=== PATIENT | female | born 1950 | race Caucasian/White ===

== ENCOUNTER 2022-01-16 09:26 | Emergency (ER) | payer MEDICARE ==
[2022-01-16 09:46] VITALS: BP 128/84; PULSE 89; RESP 20; TEMP 98.2
[2022-01-16] MEDS ORDERED: MECLIZINE 12.5 MG TAB PO STA (09:57)
[2022-01-16 10:30] LABS: Basophils % (A) 0 %; Eosinophils # (A) 0.1 k/uL (0-0.7); Eosinophils % (A) 1 %; HCT 43.4 % (34.0-46.0); HGB 14.7 gm/dL (11.4-16.0); Lymphocytes # (A) 1.5 k/uL (1.0-4.8); Lymphocytes % (A) 15 %; MCH 31.2 pg (25.0-35.0); MCHC 33.7 g/dL (31.0-37.0); MCV 92.4 fL (80.0-100.0); Mean Platelet Volume 8.5; Monocytes # (A) 0.5 k/uL (0-1.0); Monocytes % (A) 5 %; Neutrophils # (A) 7.5 k/uL (1.3-7.7); Neutrophils % (A) 77 %; Platelet Count 285 k/uL (150-450); RDW 13.3 % (11.5-15.5); WBC 9.8 k/uL (3.8-10.6)
[2022-01-16 10:33] LABS: Appearance,Urine Clear (Clear); Bilirubin,Urine Negative (Negative); Blood,Urine Negative (Negative); Color,Urine Yellow; Glucose,Urine (UA) Negative (Negative); Ketones,Urine Negative (Negative); Leukocyte Esterase,Urine Negative (Negative); Nitrite,Urine Negative (Negative); PH, Urine 7.5 (5.0-8.0); Protein,Urine Negative (Negative); Specific Gravity,Urine 1.017 (1.001-1.035); Urobilinogen,Urine <2.0 mg/dL (<2.0)
--- NOTE | 2022-01-16 10:34 | XR ---
EXAMINATION TYPE: XR chest 2V DATE OF EXAM: 01/16/2022 COMPARISON: NONE TECHNIQUE: PA and lateral views submitted. HISTORY: Dizziness FINDINGS: The lungs are clear and there is no pneumothorax, pleural effusion, or focal pneumonia. Prominence of the right paratracheal suprahilar stripe stable from 2015 and may represent prominent ascending ao rta. Heart size normal. No overt failure. Partial eventration right hemidiaphragm. This should joint arthropathy noted. IMPRESSION: 1. No acute process. Persistent prominence of the right paratracheal stripe could represent an aortic aneurysm or ectasia. Adenopathy not excluded. Findings are stable from prior chest x-ray 2015.
[2022-01-16 10:54] LABS: ALT 16 U/L (4-34); AST 19 U/L (14-36); African American GFR (CKD) >90 (>60 ml/min/1.73 sqM); Albumin 4.8 g/dL (3.5-5.0); Alkaline Phosphatase 65 U/L (38-126); Anion Gap 11 mmol/L; Blood Urea Nitrogen 18 mg/dL (7-17); Calcium 9.6 mg/dL (8.4-10.2); Carbon Dioxide 27 mmol/L (22-30); Chloride 99 mmol/L (98-107); Glucose 107 mg/dL (74-99); Non-African American GFR(CKD) 79 (>60 ml/min/1.73 sqM); Potassium 4.4 mmol/L (3.5-5.1); Sodium 137 mmol/L (137-145); Total Bilirubin 0.6 mg/dL (0.2-1.3); Total Protein 7.3 g/dL (6.3-8.2)
--- NOTE | 2022-01-16 11:02 | ED ---
General Adult HPI - General Chief complaint: Dizziness Stated complaint: dizziness, headache Time Seen by Provider: 01/16/22 09:49 Source: patient, RN notes reviewed, old records reviewed Mode of arrival: ambulatory Limitations: no limitations - History of Present Illness Initial comments: Patient is a 71-year-old female with past medical history remarkable for hypertension, thyroid disorder who presents emergency Department complaining of a dizziness sensation. States she awoke earlier this morning with a dizziness that she describes as somewhat of a lightheaded sensation as well as somewhat of a room spinning sensation that was followed by a frontal headache. Headache was not the worst headache of her life. It is mild. Still somewhat present. The dizziness sensation is still somewhat present as well. Does have a remote history of vertigo but states it has been multiple years. States this is somewhat different than what she remembers. Denies any other acute complaints at this time including chest pain, shortness of breath, abdominal pain, nausea, vomiting. Denies any blurry vision. Denies any trauma. Is not on blood thinners. Denies any upper respiratory illnesses that are recent. Denies any ear fullness or runny nose. Has no other acute complaints. Presents for further evaluation at this time. - Related Data Home Medications Medication Instructions Recorded Confirmed Lisinopril-Hctz 20-12.5 mg 1 tab PO DAILY 05/02/14 01/16/22 [Zestoretic 20-12.5] Famotidine [Pepcid] 40 mg PO DAILY 01/16/22 01/16/22 Levothyroxine Sodium [Synthroid] 150 mcg PO DAILY 01/16/22 01/16/22 Previous Rx's Medication Instructions Recorded Meclizine [Antivert] 25 mg PO TID PRN 7 Days #21 tab 01/16/22 Allergies Allergy/AdvReac Type Severity Reaction Status Date / Time Penicillins Allergy Unknown Verified 01/16/22 12:14 propoxyphene HCl Allergy Unknown Verified 01/16/22 12:14 [From Darvon] sulfamethoxazole Allergy Unknown Verified 01/16/22 12:14 [From Bactrim] trimethoprim [From Bactrim] Allergy Unknown Verified 01/16/22 12:14 Review of Systems ROS Statement: Those systems with pertinent positive or pertinent negative responses have been documented in the HPI. Review of Systems: CONST: Denies fever EYES: Denies blurry vision ENT: Denies nasal congestion C/V: Denies Chest pain RESP: Denies shortness of breath GI: Denies abdominal pain : Denies dysuria SKIN: Denies rash. MSK: Denies joint pain. NEURO: Endorses mild frontal headache that is resolving ROS Other: All systems not noted in ROS Statement are negative. Past Medical History Past Medical History: Hypertension, Thyroid Disorder History of Any Multi-Drug Resistant Organisms: None Reported Past Surgical History: Bariatric Surgery, Tonsillectomy, Tubal Ligation Additional Past Surgical History / Comment(s): lap band Past Psychological History: No Psychological Hx Reported Smoking Status: Former smoker Past Alcohol Use History: None Reported Past Drug Use History: None Reported General Exam - General Exam Comments Initial Comments: General: Appears in no acute distress. HEAD: Normal with no signs of head trauma. EYES: PERRLA, EOMI, conjunctiva normal, no discharge. Pupils 2 mm and equal bilaterally. ENT: Hearing grossly intact, normal oropharynx. RESPIRATORY: Clear breath sounds bilaterally. No wheezes, rales, or rhonchi. C/V: Regular rate and rhythm. S1 and S2 auscultated, no edema, peripheral pulses 2+ and intact throughout ABD: Abd is soft, nontender, nondistended EXT: Normal range of motion, no obvious deformity SKIN: No rashes or lesions observed on exposed skin. NEURO: Alert and oriented x 4. Cranial nerves II-XII intact. No focal sensory or strength deficits. NIH of 0. GCS of 15. Cerebellar function is within normal limits as evident by normal finger to nose testing, [id number] testing, absence of dysdiadochokinesia. Negative Romberg. She ambulates without difficulty. Limitations: no limitations Course Vital Signs 01/16/22 09:43 Temperature 98.2 F Pulse Rate 89 Respiratory 20 Rate Blood Pressure 128/84 O2 Sat by Pulse 94 L Oximetry Medical Decision Making - Medical Decision Making Based on the patient's presentation and physical exam, I'm concerned for possible vertiginous causes for her dizziness. Cannot rule out central causes, however it does appear to be somewhat positional. No nystagmus appreciated. With the headache and I did recommend we obtain CT imaging which she consented to. We will also obtain basic laboratory studies at this time. She was in agreement with this plan. She is relatively asymptomatic at this time. Vital signs within acceptable limits. EKG showed no signs of acute ischemia. Laboratory studies are within normal limits. Chest x-ray reveals no acute cardio pulmonary process.Patient specifically asked about carbon monoxide poisoning and she does have abdominal tenderness. We will obtain level which was normal. CT brain showed no acute process. CT angiogram of the brain also was unremarka ble. Chronic findings only. On reevaluation come patient remains asymptomatic. I believe it is safer to be discharged home with meclizine prescription. She was in agreement this plan. We'll follow up with her primary care physician. Strict return precautions were discussed. We discussed her results. She was in agreement this plan. I will provide the patient with a prescription for Antivert. I instructed the patient to follow up with their PCP in the next 1-3 days. I explained that the patient should return to the emergency department if they experience any worsening symptoms. Strict return precautions were discussed with the patient. The patient expressed understanding of these instructions. I answered all questions that the patient had. The patient was discharged home in good condition with their prescriptions and follow up information. - Lab Data Result diagrams: 01/16/22 10:06 01/16/22 10:06 Lab Results 01/16/22 01/16/22 01/16/22 Range/Units 10:06 10:06 10:06 WBC 9.8 (3.8-10.6) k/uL RBC 4.70 (3.80-5.40) m/uL Hgb 14.7 (11.4-16.0) gm/dL Hct 43.4 (34.0-46.0) % MCV 92.4 (80.0-100.0) fL MCH 31.2 (25.0-35.0) pg MCHC 33.7 (31.0-37.0) g/dL RDW 13.3 (11.5-15.5) % Plt Count 285 (150-450) k/uL MPV 8.5 Neutrophils % 77 % Lymphocytes % 15 % Monocytes % 5 % Eosinophils % 1 % Basophils % 0 % Neutrophils # 7.5 (1.3-7.7) k/uL Lymphocytes # 1.5 (1.0-4.8) k/uL Monocytes # 0.5 (0-1.0) k/uL Eosinophils # 0.1 (0-0.7) k/uL Basophils # 0.0 (0-0.2) k/uL Carbon Monoxide, Quant (<10.0) % Sodium 137 (137-145) mmol/L Potassium 4.4 (3.5-5.1) mmol/L Chloride 99 (98-107) mmol/L Carbon Dioxide 27 (22-30) mmol/L Anion Gap 11 mmol/L BUN 18 H (7-17) mg/dL Creatinine 0.76 (0.52-1.04) mg/dL Est GFR (CKD-EPI)AfAm >90 (>60 ml/min/1.73 sqM) Est GFR (CKD-EPI)NonAf 79 (>60 ml/min/1.73 sqM) Glucose 107 H (74-99) mg/dL Calcium 9.6 (8.4-10.2) mg/dL Total Bilirubin 0.6 (0.2-1.3) mg/dL AST 19 (14-36) U/L ALT 16 (4-34) U/L Alkaline Phosphatase 65 (38-126) U/L Total Protein 7.3 (6.3-8.2) g/dL Albumin 4.8 (3.5-5.0) g/dL Urine Color Yellow Urine Appearance Clear (Clear) Urine pH 7.5 (5.0-8.0) Ur Specific [place] 1.017 (1.001-1.035) Urine Protein Negative (Negative) Urine Glucose (UA) Negative (Negative) Urine Ketones Negative (Negative) Urine Blood Negative (Negative) Urine Nitrite Negative (Negative) Urine Bilirubin Negative (Negative) Urine Urobilinogen <2.0 (<2.0) mg/dL Ur Leukocyte Esterase Negative (Negative) 01/16/22 Range/Units 10:06 WBC (3.8-10.6) k/uL RBC (3.80-5.40) m/uL Hgb (11.4-16.0) gm/dL Hct (34.0-46.0) % MCV (80.0-100.0) fL MCH (25.0-35.0) pg MCHC (31.0-37.0) g/dL RDW (11.5-15.5) % Plt Count (150-450) k/uL MPV Neutrophils % % Lymphocytes % % Monocytes % % Eosinophils % % Basophils % % Neutrophils # (1.3-7.7) k/uL Lymphocytes # (1.0-4.8) k/uL Monocytes # (0-1.0) k/uL Eosinophils # (0-0.7) k/uL Basophils # (0-0.2) k/uL Carbon Monoxide, Quant 2.3 (<10.0) % Sodium (137-145) mmol/L Potassium (3.5-5.1) mmol/L Chloride (98-107) mmol/L Carbon Dioxide (22-30) mmol/L Anion Gap mmol/L BUN (7-17) mg/dL Creatinine (0.52-1.04) mg/dL Est GFR (CKD-EPI)AfAm (>60 ml/min/1.73 sqM) Est GFR (CKD-EPI)NonAf (>60 ml/min/1.73 sqM) Glucose (74-99) mg/dL Calcium (8.4-10.2) mg/dL Total Bilirubin (0.2-1.3) mg/dL AST (14-36) U/L ALT (4-34) U/L Alkaline Phosphatase (38-126) U/L Total Protein (6.3-8.2) g/dL Albumin (3.5-5.0) g/dL Urine Color Urine Appearance (Clear) Urine pH (5.0-8.0) Ur Specific [place] (1.001-1.035) Urine Protein (Negative) Urine Glucose (UA) (Negative) Urine Ketones (Negative) Urine Blood (Negative) Urine Nitrite (Negative) Urine Bilirubin (Negative) Urine Urobilinogen (<2.0) mg/dL Ur Leukocyte Esterase (Negative) - EKG Data -: EKG Interpreted by Me EKG Comments: 12-lead Electrocardiogram Interpretation Note EKG was reviewed and interpreted by myself. 12-lead ECG performed at 1010 is interpreted by me as revealing normal sinus rhythm at a rate of 96 beats per minute. [place] is normal. RI interval is 144 ms, QRS duration is 76 ms, QTc is 378 ms.. There were no ST or T wave abnormalities to suggest myocardial ischemia or injury. R wave progression across the precordium was satisfactory. By my interpretation this EKG is non-diagnostic for acute ischemia. Disposition Clinical Impression: Vertigo Disposition: HOME SELF-CARE Condition: Good Instructions (If sedation given, give patient instructions): Dizziness (ED) Prescriptions: Meclizine [Antivert] 25 mg PO TID PRN 7 Days #21 tab PRN Reason: Vertigo Is patient prescribed a controlled substance at d/c from ED?: No Referrals: Kim Aparicio DO [Primary Care Provider] - 1-2 days Time of Disposition: 13:00
[2022-01-16] MEDS ORDERED: methylPREDNISolone SOD SUCCI 125 MG/2 ML VIAL IV STA (11:36)
[2022-01-16] MEDS ORDERED: FAMOTIDINE 20 MG/2 ML VIAL IV STA (11:36)
[2022-01-16] MEDS ORDERED: diphenhydrAMINE 50 MG/ML 1 ML VIAL IVP STA (11:36)
--- NOTE | 2022-01-16 12:46 | CT ---
EXAMINATION TYPE: CT brain wo con DATE OF EXAM: 01/16/2022 COMPARISON: None INDICATION: Dizzy, vertigo, headache DLP: 1127.6 mGycm, Automated exposure control for dose reduction was used. CONTRAST: None CT of the brain is performed utilizing 3 mm thick sections through the posterior fossa and 3 mm thick sections through the remaining calvarium. Study is performed within 24 hours of arrival to the hosp [facility]. No abnormal hyperdensity is present to suggest an acute intracranial hemorrhage. No mass lesion is evident. No acute infarcts are evident. There is nonspecific subcortical hypodensity within the pryor radiata centrum semiovale bilaterally. Findings could be related to chronic white matter ischemic changes. Ventricles and sulci are appropriate for the patient age. Paranasal sinuses and mastoid air cells within the [id number] are clear. Hyperostosis frontalis in ternus, normal variant, is present. IMPRESSIONS: 1. Mild chronic appearing white matter ischemic type changes. Follow-up MRI can be performed as cli nically indicated.
--- NOTE | 2022-01-16 13:03 | CT ---
EXAMINATION TYPE: CT angio head neck DATE OF EXAM: 01/16/2022 HISTORY: Dizziness, vertigo, headache COMPARISON: None. CT DLP: 1464.9 mGycm. Automated Exposure Control for Dose Reduction was Utilized. TECHNIQUE: CTA scan of the head and neck is performed with IV Contrast, patient injected with 65 mL of Isovue 370, axial images are obtained, coronal and sagittal reformatted images are reviewed. 3D re constructed images are created on an independent workstation and reviewed. FINDINGS: Carotid/Vascular Structures: Three-vessel origin from aortic arch without significant plaque or steno sis. Some tortuous course to the common carotid arteries bilaterally. No significant plaque or stenos is in the common carotid arteries bilaterally. No significant plaque or stenosis at carotid bulb leve l. Patent external carotid arteries bilaterally without significant stenosis. Vertebral arteries are patent to basilar junction. There is dominant or larger caliber distal left ve rtebral artery. No significant focal stenosis or aneurysm in the posterior circulation. There are hyp oplastic bilateral posterior commuting arteries. Anterior circulation shows small caliber but patent anterior communicating artery. There is no significant focal stenosis or aneurysm in the anterior cir culation Other: Asymmetric diminished size or atrophy to right thyroid lobe with subcentimeter calcified left thyroid nodule. Mild emphysematous change in the visualized upper lungs. Scoliotic curvature centered in the upper thoracic spine. [id number] disc space narrowing and m oderate spurring C5-C6 and C6-C7 levels with posterior spurs efface the anterior thecal sac at these levels. IMPRESSION: No significant vascular abnormality is seen. NASCET criteria was used in interpretation of this exam?
== END 2022-01-16 14:00 | disposition home or self-care (01) ==
LOC: EC 09:26
DX: R42 Dizziness and giddiness (principal); I10 Essential (primary) hypertension; E07.9 Disorder of thyroid, unspecified; Z87.891 Personal history of nicotine dependence; Z88.0 Allergy status to penicillin; Z88.5 Allergy status to narcotic agent; Z88.2 Allergy status to sulfonamides; Z79.890 Hormone replacement therapy; Z79.899 Other long term (current) drug therapy
CPT/HCPCS: 36415; 93005; 80053; 82375; 85025; 81003; 71046; 70496; 70450; 70498; 99284; 96374; 96375 ×2; J1200; J2930; Q9967